=== PATIENT | male | born 1965 | race Caucasian/White ===

== ENCOUNTER → 2019-01-23 10:39 | Outpatient (CLI) | payer OTHER, SELFPAY ==
--- NOTE | 2019-01-23 | DI.RAD.S_ITS ---
PROCEDURE: XR CLAVICLE RT INDICATIONS: CLAVICAL PAIN TECHNIQUE: 2 views of the clavicle were acquired. COMPARISON: None. FINDINGS: Bones: No fractures or dislocations. No suspicious bony lesions. Soft tissues: No suspicious soft tissue calcifications. IMPRESSION: Intact right clavicle without significant distal degeneration or separation. Dictated by: Delphine eRyna M.D. on 01/23/2019 at 12:04 Approved by: Delphine Reyna M.D. on 01/23/2019 at 12:05
== END ==
PROVIDERS: PCP Family Medicine; Visit Provider Family Medicine
DX: M89.8X1 Other specified disorders of bone, shoulder (principal); M25.511 Pain in right shoulder
CPT/HCPCS: 73000

== ENCOUNTER → 2021-11-20 15:50 | Outpatient (CLI) | payer OTHER, MEDICAID, SELFPAY ==
--- NOTE | 2021-11-20 | DI.RAD.S_ITS ---
PROCEDURE: XR KNEE RT 3V INDICATIONS: RIGHT KNEE PAIN TECHNIQUE: 3 views of the knee were acquired. COMPARISON: None. FINDINGS: Bones: No fractures or dislocations. No suspicious bony lesions. Soft tissues: No joint effusion. No suspicious soft tissue calcifications. Prepatellar soft tissue edema. IMPRESSION: No acute osseous abnormality. Dictated by: Kobe Cazares M.D. on 11/20/2021 at 17:10 Approved by: Kobe Cazares M.D. on 11/20/2021 at 17:11
== END ==
PROVIDERS: PCP Family Medicine; Referring Provider Family Medicine; Visit Provider Family Medicine
DX: M25.561 Pain in right knee (principal)
CPT/HCPCS: 73562

== ENCOUNTER → 2021-12-04 13:09 | Outpatient (CLI) | payer OTHER, MEDICAID, SELFPAY ==
[2021-12-04 17:28] LABS: COVID19 -Nasal RAPID Negative (Negative)
== END ==
PROVIDERS: PCP Family Medicine; Visit Provider Surgery
DX: Z01.812 Encounter for preprocedural laboratory examination (principal); Z20.822 Contact with and (suspected) exposure to COVID-19
CPT/HCPCS: 87635; C9803

== ENCOUNTER 2021-12-05 06:47 | Day surgery (SDC) | payer OTHER, MEDICAID, SELFPAY ==
--- NOTE | 2021-12-05 | PATH_ITS ---
[facility] Accession Number: [id number] . 01 Material submitted: . cecum - CECUM POLYP . 02 Diagnosis: Cecum, Polyp, Biopsy: Tubular adenoma. MRV 12/07/2021 1109 Local . 02 Electronically signed: . Haley Farmer MD, Pathologist NPI- [id number] . 01 Gross description: . CECUM POLYP: Received in formalin are multiple fragment(s) of segura, soft tissue measuring 0.3 x 0.1 x 0.1 cm in aggregate submitted entirely in 1 cassette(s) /CPE 12/06/2021 0542 Local . 02 Pathologist provided ICD-10: D12.0 . 02 CPT . 786531 Specimen Comment: A courtesy copy of this report has been sent to [phone] Performed at: 01 [facility] [address] [id number] MD Milo Shepard MD Phone: [phone] Performed at: [facility] [address] [place], [place] [id number] MD Haley Farmer MD Phone: [phone]
[2021-12-05 07:10] VITALS: BMI 33.5
[2021-12-05 07:18] VITALS: BP 140/88; PULSE 81; RESP 18; TEMP 36.4; O2SAT 95
[2021-12-05] MEDS: LACTATED RINGERS 1,000 ML 200 ML IV (07:30)
--- NOTE | 2021-12-05 07:44 | PM.HP.1 ---
History of Present Illness History of Present Illness Date Patient Seen: 12/05/21 Time Patient Seen: 07:44 Chief complaint: SCREENING COLONOSCOPY Narrative: The patient presents for colorectal sreening. Most recent colonoscopy 8 years ago. History diverticulitis status post sigmoid colectomy. Mother had colon cancer. On further history denies any recent gastrointestinal symptoms. No nausea, vomiting, abdominal pain, loss of appetite, unexplained weight loss, change in bowel habits, diarrhea, constipation, melena, hematochezia, or bright red blood per rectum. Patient History Medical History (Updated 12/05/21 @ 07:45 by Sidney Ashraf MD) Insomnia (~2016) Obstructive sleep apnea of adult (~2017) Snoring (~1998) Family & Social History Social History: household members none lives independently Yes caregiver/support person No Tobacco & Substance use: Smoking Status Never smoker alcohol intake current alcohol intake frequency other Substance Use Type marijuana Meds Home Medications and Allergies Home Medications Medication Instructions Recorded Confirmed Type acyclovir 200 mg capsule 200 mg PO BID PRN #14 cap MDD 12/16/20 12/05/21 Rx 400mg MDD lorazepam 0.5 mg tablet 0.5 mg PO BEDTIME PRN 12/29/20 12/05/21 History hydroxyzine HCl 10 mg tablet 10 mg PO QID PRN #120 tab 03/30/21 12/05/21 Rx lamotrigine 100 mg tablet 300 mg PO DAILY #270 tab 03/30/21 12/05/21 Rx gabapentin 600 mg tablet See Rx Instructions PO .COMPLEX 08/23/21 12/05/21 Rx #180 tab quetiapine 25 mg tablet See Rx Instructions PO BEDTIME 90 10/17/21 12/05/21 Rx Days #180 tab venlafaxine 75 mg capsule,extended 225 mg PO QAM #90 cap 10/17/21 12/05/21 Rx release 24 hr peg 3350-electrolytes 236 240 ml PO Q10M #4000 ml 11/23/21 12/05/21 Rx gram-22.74 gram-6.74 gram-5.86 gram solution (Golytely) Allergies Allergy/AdvReac Type Severity Reaction Status Date / Time Penicillins [PENICILLINS] Allergy Unknown Verified 12/05/21 07:08 Exam Vital Signs (past 8 hours): - 12/05/21 07:18 Temperature 97.6 F Pulse Rate 81 Respiratory Rate 18 Blood Pressure 140/88 Pulse Oximetry 95 Oxygen Delivery Method Room Air Narrative Exam Narrative: GENERAL: Adult male in no apparent distress HEENT: No scleral icterus CV: Regular rate, no peripheral edema LUNGS: No increased work of breathing. Patient speaks in full sentences without oxygen support. ABDOMEN: Soft, non-tender, non-distended NEURO: Nonfocal, normal strength throughout, normal gait. SKIN: Warm and dry Assessment & Plan Assessment and plan (1) Screening for colon cancer: Status: Acute Assessment & Plan narrative: The patient requires colorectal screening and colonoscopy is recommended. Technical details were discussed. Risks, benefits, alternatives explained. Risks including but not limited to myocardial infarction, aspiration, bleeding, pain, missed lesion, incomplete examination, need for further radiographic studies, colonic perforation, and need for major abdominal surgery were discussed. All questions were answered to their satisfaction, and they are in agreement with this plan. Time Spent With Patient Critical Care time: I spent a total of [] minutes of critical care time on this patient's care today; this time is exclusive of procedural time.
[2021-12-05] MEDS: fentaNYL 250 MCG/5 ML INJ IV (08:13)
[2021-12-05] MEDS: MIDAZOLAM 5 MG/5 ML VIAL IV (08:13)
[2021-12-05 08:15] VITALS: BP 144/92; PULSE 78; RESP 12; TEMP 36.2; O2SAT 94
--- NOTE | 2021-12-05 08:16 | PM.OP.COLON ---
Operative Date/Time/Diagnoses Date of procedure: 12/05/21 Time of procedure: 08:16 Pre-op diagnosis: Family history of colon cancer Post-op diagnosis: same Procedure & Clinicians Study performed: Colonoscopy and polypectomy Same procedure as scheduled: Yes Indications: Family history of colon cancer. Screening Surgeon: Sidney Ashraf Procedure Notes Procedure in detail: Medications: Conscious sedation using 4mg IV midazolam and 150mcg IV of fentanyl The history and physical was performed/updated and the patient is ASA class is 2. The procedure was discussed in detail with the patient. Potential risks complications including infection, bleeding, missed diagnosis, perforation, need for surgery, and were explained. Their questions were answered and informed consent was obtained. Patient was brought to the procedure room and placed standard monitoring equipment. The patient's vital signs were monitored continuously throughout the entire procedure. Prior to starting time-out was performed. The patient was placed in the left lateral recumbent position. Procedural sedation was administered. Examination began with a thorough inspection of the perianal area there was no evidence of fissures, fistulae, external hemorrhoids or cutaneous malignancy. The colonoscopy scope was then placed into the anal canal and was advanced to the cecum, which was identified by the ileocecal valve, the appendiceal orifice and the confluence of the taenia. The scope was then slowly withdrawn examining colon thoroughly in all directions, irrigating it of any residual stool. FINDINGS 1. 3 mm polyp cecum removed biopsy forceps 2. Diverticulosis 3. Normal colonic anastomosis The patient tolerated the procedure well. They will be discharged once criteria are met. The prep was of good/excellent quality. The withdrawl time was 10 minutes. The sedation time was 18 minutes. Specimen(s): other (Cecum) Complications: none Impression: Colonic polyp Post-procedure Recommendations: Colonoscopy in 5 years Disposition: same day surgery
[2021-12-05 08:19] VITALS: BP 161/86; PULSE 89; RESP 12; O2SAT 97
[2021-12-05 08:24] VITALS: BP 117/89; PULSE 74; RESP 12; O2SAT 96
[2021-12-05 08:31] VITALS: BP 122/79; PULSE 74; RESP 17; TEMP 36.2; O2SAT 98
== END 2021-12-05 08:41 | disposition home or self-care (01) ==
PROVIDERS: PCP Family Medicine; Referring Provider Surgery; Visit Provider Surgery
PROC: 0DJD8ZZ Inspection of Lower Intestinal Tract, Via Natural or Artificial Opening Endoscopic (ICD-10-PCS; CPT 45378; principal; 2021-12-05 07:45)
DX: Z12.11 Encounter for screening for malignant neoplasm of colon (principal); Z80.0 Family history of malignant neoplasm of digestive organs; G47.33 Obstructive sleep apnea (adult) (pediatric); Z90.49 Acquired absence of other specified parts of digestive tract; K57.30 Diverticulosis of large intestine without perforation or abscess without bleeding; D12.0 Benign neoplasm of cecum
CPT/HCPCS: 45380; 99152; J2250; J3010

== ENCOUNTER → 2022-06-25 16:01 | Outpatient (CLI) | payer OTHER, MEDICAID, SELFPAY ==
--- NOTE | 2022-06-25 16:02 | DI.RAD.S_ITS ---
PROCEDURE: XR CHEST 2V INDICATIONS: Pleurodynia TECHNIQUE: 2 views of the chest were acquired. COMPARISON: [facility], CR, XR RIBS LT 2V, 06/25/2022, 16:05. FINDINGS: Surgical changes and devices: None. Lungs and pleura: Lungs are clear. No pleural effusions or pneumothorax. Mediastinum: Mediastinal contours are normal. Heart size is normal. Bones and chest wall: No suspicious bony abnormalities. Soft tissues appear unremarkable. IMPRESSION: No acute cardiopulmonary abnormality. Dictated by: Alberto Young M.D. on 06/25/2022 at 17:34 Approved by: Alberto Young M.D. on 06/25/2022 at 17:35
--- NOTE | 2022-06-25 16:02 | DI.RAD.S_ITS ---
PROCEDURE: XR RIBS LT 2V INDICATIONS: Pleurodynia TECHNIQUE: 2 views of the left ribs were acquired. COMPARISON: [facility], CR, XR CHEST 2V, 06/25/2022, 16:05. FINDINGS: Surgical changes and devices: A radiopaque marker overlies the area of clinical concern. Bones and chest wall: No fractures or dislocations. No suspicious bony lesions. Overlying soft tissues appear unremarkable. Lungs and pleura: The visualized lung appears clear. No pleural effusions or pneumothorax are visible. IMPRESSION: No acute displaced rib fracture visualized. CT of the chest could be obtained for further evaluation if clinically indicated. Dictated by: Alberto Young M.D. on 06/25/2022 at 17:31 Approved by: Alberto Young M.D. on 06/25/2022 at 17:33
== END ==
PROVIDERS: PCP Family Medicine; Referring Provider Family Medicine; Visit Provider Family Medicine
DX: R07.81 Pleurodynia (principal)
CPT/HCPCS: 71046; 71100

== ENCOUNTER → 2022-07-06 13:42 | Outpatient (CLI) | payer OTHER, MEDICAID, SELFPAY ==
--- NOTE | 2022-07-06 | DI.RAD.S_ITS ---
PROCEDURE: XR SHOULDER RT MIN 2V INDICATIONS: Other synovitis and tenosynovitis, unspecified shoulder TECHNIQUE: 3 views of the shoulder were acquired. COMPARISON: None. FINDINGS: Bones: No fractures or dislocations. No suspicious bony lesions. Visualized ribs appear intact. Soft tissues: No suspicious soft tissue calcifications. IMPRESSION: No acute osseous abnormalities. If clinical symptoms persist or clinical suspicion for pathology is high, a repeat examination in 7-10 days, or advanced imaging such as CT or MRI is suggested for further evaluation. Dictated by: Margi Correa M.D. on 07/06/2022 at 17:19 Approved by: Margi Correa M.D. on 07/06/2022 at 17:20
== END ==
PROVIDERS: PCP Family Medicine; Referring Provider Family Medicine; Visit Provider Family Medicine
DX: M65.819 Other synovitis and tenosynovitis, unspecified shoulder (principal); M54.16 Radiculopathy, lumbar region
CPT/HCPCS: 73030

== ENCOUNTER 2022-08-11 19:48 | Emergency (ER) | payer OTHER, MEDICAID, SELFPAY ==
[2022-08-11 20:01] VITALS: BP 130/63; PULSE 91; RESP 18; TEMP 37.7; O2SAT 97; BMI 27.1
[2022-08-11 20:55] LABS: Influenza A - CEPHEID Flu A POSITIVE (NEGATIVE); Influenza B - CEPHEID Flu B NEGATIVE (NEGATIVE)
[2022-08-11 20:56] LABS: COVID-19 CEPHEID 4-PLEX PCR Negative (Negative)
== END 2022-08-11 21:33 | disposition left against medical advice (07) ==
PROVIDERS: Emergency Provider Emergency Medicine; PCP Family Medicine
DX: R50.9 Fever, unspecified (principal)
CPT/HCPCS: 87635; 99281; C9803

== ENCOUNTER → 2024-07-16 15:54 | Outpatient (CLI) | payer OTHER, MEDICAID, SELFPAY ==
--- NOTE | 2024-07-16 15:57 | DI.RAD.S_ITS ---
PROCEDURE: XR TOE RT MIN 2V INDICATIONS: hammer toe of left foot, pain in right great toe TECHNIQUE: 3 views of the 1st toe(s) acquired. COMPARISON: , , XR TOE LT MIN 2V, 07/16/2024, 15:57. FINDINGS: Bones: Mildly displaced and comminuted intra-articular fracture of the 1st distal phalanx. Soft tissues: No suspicious calcifications. IMPRESSION: First distal phalangeal intra-articular fracture. Dictated by: Edvin Richards M.D. on 07/16/2024 at 16:51 Approved by: Edvin Richards M.D. on 07/16/2024 at 16:52
--- NOTE | 2024-07-16 15:57 | DI.RAD.S_ITS ---
PROCEDURE: XR TOE LT MIN 2V INDICATIONS: hammer toe of left foot, pain in right toe TECHNIQUE: 3 views of the 2nd toe(s) acquired. COMPARISON: [facility], , XR TOE RT MIN 2V, 07/16/2024, 15:55. FINDINGS: Bones: Possible bone island at the 1st distal phalanx. No acute displaced fracture or dislocation. No high-grade degenerative changes. Soft tissues: No suspicious calcifications. IMPRESSION: No acute radiographic abnormality. If there is high concern for further derangement, consider MRI evaluation. Dictated by: Edvin Richards M.D. on 07/16/2024 at 16:52 Approved by: Edvin Richards M.D. on 07/16/2024 at 16:53
== END ==
PROVIDERS: PCP Family Medicine; Referring Provider Family Medicine; Visit Provider Family Medicine
DX: S92.421A Displaced fracture of distal phalanx of right great toe, initial encounter for closed fracture (principal); M20.42 Other hammer toe(s) (acquired), left foot; M79.674 Pain in right toe(s); X58.XXXA Exposure to other specified factors, initial encounter
CPT/HCPCS: 73660